=== PATIENT | female | born 1955 | race Caucasian/White ===

== ENCOUNTER 2018-08-30 08:20 | Emergency (ER) | payer BC ==
[~2018-08-30] VITALS: Ht 162.6 cm; Wt 53.1 kg
--- OUTSIDE RECORDS SUMMARY | 2018-08-30 08:24 | XMS REPORT ---
Author Author [facility] Address Unknown Phone Unavailable Care Team Providers Care Sustainability Manager Name Role Phone Unavailable Unavailable Payers Payer Name Policy Type Policy Number Effective Date Expiration Date Problems This patient has no known problems. Allergies, Adverse Reactions, Alerts This patient has no known allergies or adverse reactions. Medications This patient has no known medications.
--- OUTSIDE RECORDS SUMMARY | 2018-08-30 08:24 | XMS REPORT | CCD ---
Author Author Auto Generated Organization [facility] Address Unknown Phone Unavailable Care Team Providers Care Warehouse Stocker Name Role Phone Niels Guallpa RP Allergies, Adverse Reactions, Alerts Substance Reaction Status NKDA Active NKFA Active Problem List Condition Effective Dates Status Complex endometrial hyperplasia Active PMB - Postmenopausal bleeding 12/02/2011 Active JENNA - Total abdominal hysterectomy 02/22/2012 Active Medications Medication Instructions Start Date End Date Status lidocaine 1% MPF 0.5 mL, Route: INTRADERM, Drug 02/22/2012 02/22/2012 Completed Form: INJ, ONCALL, Start date: 02/22/12 7:00:00, Duration: 1 doses or times, Stop date: 03/24/12 0:00:00 Lactated Ringers 1,000 mL, Rate: 25 ml/hr, Infuse 02/22/2012 02/22/2012 Discontinued Injection IV 1,000 over: 40 hr, Route: IV, Dosing mL Weight 53.182 kg, Total Volume: 1,000, Start date: 02/22/12 6:46:00, Duration: 30 day, Stop date: 03/23/12 6:45:00 fluticasone 50 mcg 50 microgram, 1 ea, INHALATION, 02/15/2012 Ordered inhalation powder BID, 180 ea, Substitution Allowed, Soft Stop, PWDR Milk of Magnesia 30 mL, Route: PO, Drug Form: SUSP, 02/22/2012 02/24/2012 Discontinued Daily, PRN Indigestion, Start date: 02/22/12 12:57:00, Duration: 30 day, Stop date: 03/23/12 12:56:00 Ambien 5 mg, 1 tab, Route: PO, Drug form: 02/22/2012 02/24/2012 Discontinued TAB, Bedtime, PRN Sleep, Start date: 02/22/12 12:57:00, Duration: 30 day, Stop date: 03/23/12 12:56:00 Tylenol 650 mg, 2 tab, Route: PO, Drug 02/22/2012 02/24/2012 Discontinued form: TAB, Q3H, PRN Temperature >101.0, Start date: 02/22/12 12:56:00, Duration: 30 day, Stop date: 03/23/12 12:55:00 Zofran 4 mg, 2 mL, Route: IVP, Drug form: 02/22/2012 02/24/2012 Discontinued INJ, Q8H, PRN Nausea, Start date: 02/22/12 12:56:00, Duration: 30 day, Stop date: 03/23/12 12:55:00 dexamethasone 4 mg, 1 mL, Route: IVP, Drug form: 02/22/2012 02/22/2012 Discontinued INJ, ONCE, PRN Nausea & Vomiting, Start date: 02/22/12 7:19:00 ondansetron 4 mg, 2 mL, Route: IVP, Drug form: 02/22/2012 02/22/2012 Discontinued INJ, ONCE, PRN Nausea & Vomiting, Start date: 02/22/12 7:19:00 hydromorphone 0.5 mg, 0.25 mL, Route: IVP, Drug 02/22/2012 02/22/2012 Discontinued form: INJ, Q5Min, PRN Pain, Start date: 02/22/12 7:19:00, Duration: 5 doses or times, Stop date: Limited # of times, pain score 4-10 ketorolac 30 mg, 1 mL, Route: IVP, Drug form: 02/22/2012 02/22/2012 Discontinued INJ, ONCE, PRN Breakthrough Pain, Start date: 02/22/12 7:19:00, Duration: 1 doses or times, Stop date: Limited # of times enalapril 0.625 mg, 0.5 mL, Route: IVP, Drug 02/22/2012 02/22/2012 Discontinued form: INJ, Q5Min, PRN Elevated BP, Start date: 02/22/12 7:19:00, Duration: 4 doses or times, Stop date: Limited # of times naloxone 0.04 mg, 0.1 mL, Route: IVP, Drug 02/22/2012 02/22/2012 Discontinued form: INJ, Q2MIN, PRN Narcotic Reversal, Start date: 02/22/12 7:19:00, Duration: 8 doses or times, Stop date: Limited # of times morphine Sulfate 2 mg, 1 mL, Route: IVP, Drug form: 02/22/2012 02/22/2012 Discontinued INJ, Q5Min, PRN Pain, Start date: 02/22/12 7:19:00, Duration: 8 doses or times, Stop date: Limited # of times, pain score 4-10 flumazenil 0.2 mg, 2 mL, Route: IVP, Drug 02/22/2012 02/22/2012 Discontinued form: INJ, PRN, PRN Benzodiazepine Reversal, Initial dose, Start date: 02/22/12 7:19:00, Duration: 30 day, Stop date: 03/23/12 7:18:00 Lactated Ringers 1,000 mL, Rate: 50 ml/hr, Infuse 02/22/2012 02/22/2012 Discontinued Injection IV 1,000 over: 20 hr, Route: IV, Dosing mL Weight 53.182 kg, Total Volume: 1,000, Start date: 02/22/12 7:19:00, Duration: 30 day, Stop date: 03/23/12 7:18:00 acetaminophen-hydroc 2 tab, Route: PO, Drug Form: TAB, 02/22/2012 02/24/2012 Discontinued odone 325 mg-5 mg Q3H, PRN Pain, Start date: 02/22/12 oral tablet 12:56:00, Duration: 30 day, Stop date: 03/23/12 12:55:00 acetaminophen-hydroc 1 tab, Route: PO, Drug Form: TAB, 02/22/2012 02/24/2012 Discontinued odone 325 mg-5 mg Q3H, PRN Pain, Start date: 02/22/12 oral tablet 12:56:00, Duration: 30 day, Stop date: 03/23/12 12:55:00 Vicodin 5/500 oral 1 tab, PO, Q6H, PRN, 30 tab, for 02/24/2012 Ordered tablet pain, Substitution Allowed, Soft Stop, TAB D5LR 1,000 mL 1,000 mL, Rate: 125 ml/hr, Infuse 02/22/2012 02/24/2012 Discontinued over: 8 hr, Route: IV, Dosing Weight 53.182 kg, Total Volume: 1,000, Start date: 02/22/12 10:47:00, Duration: 30 day, Stop date: 03/23/12 10:46:00 Dulcolax Laxative 10 mg, 1 supp, Route: CO, Drug 02/22/2012 02/24/2012 Discontinued form: SUPP, Daily, PRN Constipation, Start date: 02/22/12 12:57:00, Duration: 30 day, Stop date: 03/23/12 12:56:00 Mylicon 160 mg, 2 tab, Route: CHEW, Drug 02/22/2012 02/24/2012 Discontinued form: CHEWTAB, Q8H, PRN Gas, Start date: 02/22/12 12:57:00, Duration: 30 day, Stop date: 03/23/12 12:56:00 morphine 1 mg/ml DIRECTOR OF ACCOUNTING 30 mg, 30 mL, Route: IV, DIRECTOR OF ACCOUNTING Dose: 02/22/2012 02/24/2012 Discontinued (30 mg/30 mL) INJ 1 mg, DIRECTOR OF ACCOUNTING Lockout: 10 minutes, Syringe 30 mg Continuous Basal Rate: 1 mg, 4 Hour Limit (In MG): 30, Drug Form: INJ, Continuous, Start date: 02/22/12 10:30:00, Duration: 30 day, Stop date: 03/23/12 10:29:00 cefazolin + Sodium 1 gm, Route: IVPB, ONCE, Start 02/22/2012 02/22/2012 Completed Chloride 0.9% IV 100 date: 02/22/12 6:46:00, Stop date: mL 02/22/12 6:46:00 Vital Signs Most recent to oldest [Reference Range]: 1 2 3 Height 163.83 cm (02/15/2012 13:46:00) Temperature Oral [96.4-99.1 DegF] 98.5 DegF (02/24/2012 08:00:00) 98.3 DegF (02/24/2012 04:41:00) 98.6 DegF (02/23/2012 23:24:00) Systolic Blood Pressure [90-140 mmHg] 128 mmHg (02/24/2012 08:00:00) 115 mmHg (02/24/2012 04:41:00) 111 mmHg (02/23/2012 23:24:00) Diastolic Blood Pressure [60-90 mmHg] 68 mmHg (02/24/2012 08:00:00) 69 mmHg (02/24/2012 04:41:00) 62 mmHg (02/23/2012 23:24:00) Respiratory Rate [14-20 BRMIN] 16 BRMIN (02/24/2012 08:00:00) 18 BRMIN (02/24/2012 04:41:00) 18 BRMIN (02/23/2012 23:24:00) Peripheral Pulse Rate [60-100 bpm] 70 bpm (02/24/2012 08:00:00) 82 bpm (02/24/2012 04:41:00) 63 bpm (02/23/2012 23:24:00) Weight 53.182 kg (02/15/2012 13:46:00) Results URINALYSIS Most recent to oldest [Reference Range]: 1 2 UA Turbidity [Clear] Clear (02/15/2012 14:20:00) UA Color [Yellow] Colorless *NA* (02/15/2012 14:20:00) UA pH [5.0-8.0] 5.0 (02/15/2012 14:20:00) UA Spec Grav [<=1.030] 1.004 (02/15/2012 14:20:00) UA Glucose [Negative mg/dL] Negative mg/dL *NA* (02/15/2012 14:20:00) UA Blood [Negative] Negative (02/15/2012 14:20:00) UA Ketones [Negative mg/dL] Negative mg/dL *NA* (02/15/2012 14:20:00) UA Protein [Negative mg/dL] Negative mg/dL (02/15/2012 14:20:00) UA Urobilinogen [0.1-1.0 mg/dL] <=1.0 mg/dL *NA* (02/15/2012 14:20:00) UA Bili [Negative] Negative *NA* (02/15/2012 14:20:00) UA Leuk Est [Negative] Trace *ABN* (02/15/2012 14:20:00) UA Nitrite [Negative] Negative (02/15/2012 14:20:00) UA WBC [0-5 /HPF] <1 /HPF (02/15/2012 14:20:00) UA Bacteria [None Seen /HPF] Occasional /HPF *NA* (02/15/2012 14:20:00) UA Sq Epi [Few /LPF] Many /LPF *ABN* (02/15/2012 14:20:00) Micro? Performed *NA* (02/15/2012 14:20:00) BLOOD BANK RESULTS Most recent to oldest [Reference Range]: 1 2 ABO/Rh O POS *Unknown* (02/15/2012:25:00) Antibody Scrn Negative (02/15/2012 14:25:00) CHEMISTRY Most recent to oldest [Reference Range]: 1 2 Sodium Lvl [135-145 mEq/L] 140 mEq/L (02/15/2012:25:00) Potassium Lvl [3.5-5.1 mEq/L] 3.5 mEq/L (02/15/2012:25:00) Chloride Lvl [95-109 mEq/L] 101 mEq/L (02/15/2012 14:25:00) CO2 [24-32 mEq/L] 27 mEq/L (02/15/2012 14:25:00) AGAP [10.0-20.0 mEq/L] 15.5 mEq/L (02/15/2012 14:25:00) Creatinine Lvl [0.5-1.4 mg/dL] 0.9 mg/dL (02/15/2012:25:00) BUN [7-22 mg/dL] 20 mg/dL (02/15/2012 14:25:00) B/C Ratio [6-25] 22 (02/15/2012 14:25:00) Glucose Lvl [70-99 mg/dL] 77 mg/dL 1 (02/15/2012 14:25:00) Total Protein [6.4-8.4 g/dL] 8.1 g/dL (02/15/2012 14:25:00) Albumin Lvl [3.5-5.0 g/dL] 4.4 g/dL (02/15/2012 14:25:00) Globulin [2.0-4.0 g/dL] 3.7 g/dL (02/15/2012 14:25:00) A/G Ratio [0.7-1.6] 1.2 (02/15/2012 14:25:00) Calcium Lvl [8.5-10.5 mg/dL] 9.3 mg/dL (02/15/2012 14:25:00) ALT [0-65 U/L] 21 U/L (02/15/2012 14:25:00) AST [0-37 U/L] 55 U/L *HI* (02/15/2012 14:25:00) Alk Phos [39-136 U/L] 47 U/L (02/15/2012 14:25:00) Bili Total [0.2-1.3 mg/dL] 0.7 mg/dL (02/15/2012 14:25:00) U Preg [Negative] Negative 2 (02/22/2012 14:39:00) 1Interpretive Data: Adult reference range values reflect the clinical guidelines of the [place] [employer]. 2Result Comment: PERFORMED BY [facility] Most recent to oldest [Reference Range]: 1 2 Hgb [12.0-16.0 g/dL] 12.0 g/dL (02/23/2012 07:43:00) 13.9 g/dL (02/15/2012 14:25:00) Hct [36.0-48.0 %] 36.7 % (02/23/2012 07:43:00) 42.5 % (02/15/2012 14:25:00) PT [12.0-14.7 seconds] 12.9 seconds (02/15/2012 14:25:00) INR [0.85-1.17] 0.95 3 (02/15/2012 14:25:00) PTT [22.9-35.8 seconds] 27.7 seconds 4 (02/15/2012 14:25:00) 3Interpretive Data: RECOMMENDED RANGES FOR PROTIME INR: 2.0-3.0 for most medical and surgical thromboembolic states. 2.5-3.5 for artificial heart valves and recurrent embolism. INR SHOULD BE USED ONLY FOR PATIENTS ON STABLE ANTICOAGULANT THERAPY. 4Interpretive Data: Heparin Therapeutic Range: 57 - 92 Seconds IMMUNOLOGY Most recent to oldest [Reference Range]: 1 2 RPR [Non Reactive] Non Reactive (02/15/2012 14:25:00) HIV 1/2 Ab [Negative] Negative *NA* (02/15/2012 14:25:00)
--- OUTSIDE RECORDS SUMMARY | 2018-08-30 08:24 | XMS REPORT | Continuity of Care Document ---
Author Author [facility] Interface Address Unknown Phone Unavailable Problems Problem Status Onset Date Classification Date Reported Comments Source Z01.810 Active 01/27/2017 [facility] JENNA - Total abdominal hysterectomy Active 02/22/2012 Problem 02/26/2012 [facility] JENNA - Total abdominal hysterectomy Active 02/22/2012 Problem 01/30/2017 [facility] ENDOMETRIAL HYPERPLASIA Active 01/03/2012 [facility] PMB - Postmenopausal bleeding Active 12/02/2011 Problem 02/26/2012 [facility] PMB - Postmenopausal bleeding Active 12/02/2011 Problem 01/30/2017 [facility] POST MENOPAUSAL BLEEDING Active 11/18/2011 [facility] Complex endometrial hyperplasia Active Problem 02/26/2012 [facility] endometrial hyperplasia Active Problem 01/30/2017 [facility] ADMINISTRTVE ENCOUNT NOS Active [facility] Medications Medication Details Route Status Patient Instructions Ordering Provider Order Date Source Vicodin 5/500 oral tablet 1 tab, PO, Q6H, PRN, 30 tab, for pain, Substitution Allowed, Soft Stop, TAB PO Active Saloni 02/24/2012 [facility] Milk of Magnesia 30 mL, Route: PO, Drug Form: SUSP, Daily, PRN Indigestion, Start date: 02/22/12 12:57:00, Duration: 30 day, Stop date: 03/23/12 12:56:00 PO No Longer Active [facility]oni 02/22/2012 [facility] Ambien 5 mg, 1 tab, Route: PO, Drug form: TAB, Bedtime, PRN Sleep, Start date: 02/22/12 12:57:00, Duration: 30 day, Stop date: 03/23/12 12:56:00 PO No Longer Active [facility] 02/22/2012 [facility] Dulcolax Laxative 10 mg, 1 supp, Route: WA, Drug form: SUPP, Daily, PRN Constipation, Start date: 02/22/12 12:57:00, Duration: 30 day, Stop date: 03/23/12 12:56:00 WA No Longer Active [facility] 02/22/2012 [facility] Mylicon 160 mg, 2 tab, Route: CHEW, Drug form: CHEWTAB, Q8H, PRN Gas, Start date: 02/22/12 12:57:00, Duration: 30 day, Stop date: 03/23/12 12:56:00 CHEW No Longer Active [facility] 02/22/2012 [facility] Tylenol 650 mg, 2 tab, Route: PO, Drug form: TAB, Q3H, PRN Temperature >101.0, Start date: 02/22/12 12:56:00, Duration: 30 day, Stop date: 03/23/12 12:55:00 PO No Longer Active [facility] 02/22/2012 [facility] Zofran 4 mg, 2 mL, Route: IVP, Drug form: INJ, Q8H, PRN Nausea, Start date: 02/22/12 12:56:00, Duration: 30 day, Stop date: 03/23/12 12:55:00 IVP No Longer Active [facility] 02/22/2012 [facility] acetaminophen-hydrocodone 325 mg-5 mg oral tablet 2 tab, Route: PO, Drug Form: TAB, Q3H, PRN Pain, Start date: 02/22/12 12:56:00, Duration: 30 day, Stop date: 03/23/12 12:55:00 PO No Longer Active [facility] 02/22/2012 [facility] D5LR 1,000 mL 1,000 mL, Rate: 125 ml/hr, Infuse over: 8 hr, Route: IV, Dosing Weight 53.182 kg, Total Volume: 1,000, Start date: 02/22/12 10:47:00, Duration: 30 day, Stop date: 03/23/12 10:46:00 IV No Longer Active [facility] 02/22/2012 [facility] morphine 1 mg/ml FAMILY NURSE (30 mg/30 mL) INJ Syringe 30 mg 30 mg, 30 mL, Route: IV, FAMILY NURSE Dose: 1 mg, FAMILY NURSE Lockout: 10 minutes, Continuous Basal Rate: 1 mg, 4 Hour Limit (In MG): 30, Drug Form: INJ, Continuous, Start date: 02/22/12 10:30:00, Duration: 30 day, Stop date: 03/23/12 10:29:00 IV No Longer Active [facility] 02/22/2012 [facility] dexamethasone 4 mg, 1 mL, Route: IVP, Drug form: INJ, ONCE, PRN Nausea & Vomiting, Start date: 02/22/12 7:19:00 IVP No Longer Active [facility] 02/22/2012 [facility] ondansetron 4 mg, 2 mL, Route: IVP, Drug form: INJ, ONCE, PRN Nausea & Vomiting, Start date: 02/22/12 7:19:00 IVP No Longer Active [facility] 02/22/2012 [facility] hydromorphone 0.5 mg, 0.25 mL, Route: IVP, Drug form: INJ, Q5Min, PRN Pain, Start date: 02/22/12 7:19:00, Duration: 5 doses or times, Stop date: Limited # of times, pain score 4-10 IVP No Longer Active [facility] 02/22/2012 [facility] ketorolac 30 mg, 1 mL, Route: IVP, Drug form: INJ, ONCE, PRN Breakthrough Pain, Start date: 02/22/12 7:19:00, Duration: 1 doses or times, Stop date: Limited # of times IVP No Longer Active [facility] 02/22/2012 [facility] enalapril 0.625 mg, 0.5 mL, Route: IVP, Drug form: INJ, Q5Min, PRN Elevated BP, Start date: 02/22/12 7:19:00, Duration: 4 doses or times, Stop date: Limited # of times IVP No Longer Active [facility] 02/22/2012 [facility] naloxone 0.04 mg, 0.1 mL, Route: IVP, Drug form: INJ, Q2MIN, PRN Narcotic Reversal, Start date: 02/22/12 7:19:00, Duration: 8 doses or times, Stop date: Limited # of times IVP No Longer Active [facility] 02/22/2012 [facility] morphine Sulfate 2 mg, 1 mL, Route: IVP, Drug form: INJ, Q5Min, PRN Pain, Start date: 02/22/12 7:19:00, Duration: 8 doses or times, Stop date: Limited # of times, pain score 4-10 IVP No Longer Active [facility] 02/22/2012 [facility] flumazenil 0.2 mg, 2 mL, Route: IVP, Drug form: INJ, PRN, PRN Benzodiazepine Reversal, Initial dose, Start date: 02/22/12 7:19:00, Duration: 30 day, Stop date: 03/23/12 7:18:00 IVP No Longer Active [facility] 02/22/2012 [facility] Lactated Ringers Injection IV 1,000 mL 1,000 mL, Rate: 50 ml/hr, Infuse over: 20 hr, Route: IV, Dosing Weight 53.182 kg, Total Volume: 1,000, Start date: 02/22/12 7:19:00, Duration: 30 day, Stop date: 03/23/12 7:18:00 IV No Longer Active [facility] 02/22/2012 [facility] lidocaine 1% MPF 0.5 mL, Route: INTRADERM, Drug Form: INJ, ONCALL, Start date: 02/22/12 7:00:00, Duration: 1 doses or times, Stop date: 03/24/12 0:00:00 INTRADERM No Longer Active [facility] 02/22/2012 [facility] Lactated Ringers Injection IV 1,000 mL 1,000 mL, Rate: 25 ml/hr, Infuse over: 40 hr, Route: IV, Dosing Weight 53.182 kg, Total Volume: 1,000, Start date: 02/22/12 6:46:00, Duration: 30 day, Stop date: 03/23/12 6:45:00 IV No Longer Active [facility] 02/22/2012 [facility] cefazolin + Sodium Chloride 0.9% IV 100 mL 1 gm, Route: IVPB, ONCE, Start date: 02/22/12 6:46:00, Stop date: 02/22/12 6:46:00 IVPB No Longer Active [facility] 02/22/2012 [facility] fluticasone 50 mcg inhalation powder 50 microgram, 1 ea, INHALATION, BID, 180 ea, Substitution Allowed, Soft Stop, PWDR INHALATION Active 02/15/2012 [facility] Vicodin 5/500 oral tablet 1 tab, PO, Q6H, 30 tab, Substitution Allowed, Maintenance PO Active [facility] 12/02/2011 [facility] flumazenil 0.2 mg, 2 mL, Route: IVP, Drug form: INJ, PRN, PRN Benzodiazepine Reversal, Initial dose, Start date: 12/02/11 8:50:00, Duration: 30 day, Stop date: 01/01/12 8:49:00 IVP No Longer Active [facility] 12/02/2011 [facility] meperidine 12.5 mg, 0.25 mL, Route: IVP, Drug form: INJ, Q30Min, PRN Other -See Comment, For shivering, Start date: 12/02/11 8:50:00, Duration: 2 doses or times, Stop date: Limited # of times IVP No Longer Active [facility] 12/02/2011 [facility] morphine Sulfate 2 mg, 1 mL, Route: IVP, Drug form: INJ, Q5Min, PRN Pain Score 4-6, Start date: 12/02/11 8:50:00, Duration: 8 doses or times, Stop date: Limited # of times IVP No Longer Active [facility] 12/02/2011 [facility] naloxone 0.04 mg, 0.1 mL, Route: IVP, Drug form: INJ, Q2MIN, PRN Narcotic Reversal, Start date: 12/02/11 8:50:00, Duration: 8 doses or times, Stop date: Limited # of times IVP No Longer Active [facility] 12/02/2011 [facility] promethazine 6.25 mg, 0.25 mL, Route: IVPB, ONCE, PRN Nausea & Vomiting, Start date: 12/02/11 8:50:00 IVPB No Longer Active [facility] 12/02/2011 [facility] ondansetron 4 mg, 2 mL, Route: IVP, Drug form: INJ, ONCE, PRN Nausea & Vomiting, Start date: 12/02/11 8:50:00 IVP No Longer Active [facility] 12/02/2011 [facility] lidocaine 1% 0.5 mL, Route: INTRADERM, Drug Form: INJ, ONCALL, Start date: 12/02/11 8:00:00, Duration: 1 doses or times INTRADERM No Longer Active [facility] 12/02/2011 [facility] cefazolin 1 gm, Route: IVPB, ONCE, Start date: 12/02/11 7:54:00, Duration: 1 doses or times, Stop date: 12/02/11 7:54:00 IVPB No Longer Active [facility] 12/02/2011 [facility] naloxone 0.04 mg, 0.1 mL, Route: IVP, Drug form: INJ, Q2MIN, PRN Narcotic Reversal, Start date: 12/02/11 7:29:00, Duration: 8 doses or times, Stop date: Limited # of times IVP No Longer Active [facility] 12/02/2011 [facility] flumazenil 0.2 mg, 2 mL, Route: IVP, Drug form: INJ, PRN, PRN Benzodiazepine Reversal, Initial dose, Start date: 12/02/11 7:29:00, Duration: 30 day, Stop date: 01/01/12 7:28:00 IVP No Longer Active [facility] 12/02/2011 [facility] meperidine 12.5 mg, 0.25 mL, Route: IVP, Drug form: INJ, Q30Min, PRN Other -See Comment, For shivering, Start date: 12/02/11 7:29:00, Duration: 2 doses or times, Stop date: Limited # of times IVP No Longer Active [facility] 12/02/2011 [facility] morphine Sulfate 2 mg, 0.2 mL, Route: IVP, Drug form: INJ, Q5Min, PRN Pain Score 4-6, Start date: 12/02/11 7:29:00, Duration: 8 doses or times, Stop date: Limited # of times IVP No Longer Active [facility] 12/02/2011 [facility] ketorolac 30 mg, 1 mL, Route: IVP, Drug form: INJ, ONCE, PRN Breakthrough Pain, Start date: 12/02/11 7:29:00, Duration: 1 doses or times, Stop date: Limited # of times IVP No Longer Active [facility] 12/02/2011 [facility] ondansetron 4 mg, 2 mL, Route: IVP, Drug form: INJ, ONCE, PRN Nausea & Vomiting, Start date: 12/02/11 7:29:00 IVP No Longer Active [facility] 12/02/2011 [facility] hydromorphone 0.5 mg, 0.25 mL, Route: IVP, Drug form: INJ, Q5Min, PRN Pain Score 4-6, Start date: 12/02/11 7:29:00, Duration: 5 doses or times, Stop date: Limited # of times IVP No Longer Active [facility] 12/02/2011 [facility] naloxone 0.04 mg, 0.1 mL, Route: IVP, Drug form: INJ, Q2MIN, PRN Narcotic Reversal, Start date: 12/02/11 7:23:00, Duration: 8 doses or times, Stop date: Limited # of times IVP No Longer Active [facility] 12/02/2011 [facility] flumazenil 0.2 mg, 2 mL, Route: IVP, Drug form: INJ, PRN, PRN Benzodiazepine Reversal, Initial dose, Start date: 12/02/11 7:23:00, Duration: 30 day, Stop date: 01/01/12 7:22:00 IVP No Longer Active [facility] 12/02/2011 [facility] ondansetron 4 mg, 2 mL, Route: IVP, Drug form: INJ, ONCE, PRN Nausea & Vomiting, Start date: 12/02/11 7:23:00 IVP No Longer Active [facility] 12/02/2011 [facility] Lactated Ringers Injection IV 1,000 mL 1,000 mL, Rate: 25 ml/hr, Infuse over: 40 hr, Route: IV, Dosing Weight 52.926 kg, Total Volume: 1,000, Start date: 12/02/11 7:22:00, Duration: 30 day, Stop date: 01/01/12 7:21:00 IV No Longer Active [facility] 12/02/2011 [facility] Lactated Ringers IV 1,000 mL 1,000 mL, Rate: 40 ml/hr, Infuse over: 25 hr, Route: IV, Dosing Weight 52.926 kg, Total Volume: 1,000, Start date: 12/02/11 6:25:00, Duration: 30 day, Stop date: 01/01/12 6:24:00 IV No Longer Active [facility] 12/02/2011 [facility] Vitamin D3 50,000 intl units oral capsule 50,000 IntlUnit, 1 cap, PO, Substitution Allowed, 2 times a month2 times a month PO Active 11/30/2011 [facility] Vitamin D3 50,000 intl units oral capsule 50,000 IntlUnit, 1 cap, PO, Daily, Substitution Allowed PO No Longer Active 11/30/2011 [facility] Benadryl 25 mg, PO, PRN, Substitution Allowed PO Active 11/30/2011 [facility] Fish Oil 1 tab, PO, Daily, Substitution Allowed PO Active 11/30/2011 [facility] Iron Iron, 240 mg, PO, Daily, Substitution Allowed PO Active 11/30/2011 [facility] Vitamin B6 200 mg, PO, Daily, Substitution Allowed PO Active 11/30/2011 [facility] folic acid 0.4 mg oral tablet 0.4 mg, 1 tab, PO, Daily, Substitution Allowed PO Active 11/30/2011 [facility] magnesium gluconate 200 mg, PO, Daily, Substitution Allowed PO Active 11/30/2011 [facility] elppa CoQ10 50 mg oral capsule 1 tab, PO, Daily, Substitution Allowed PO Active 11/30/2011 [facility] prasterone (dhea) 1 tab, PO, Daily, Substitution Allowed PO Active 11/30/2011 [facility] Calcium 600 +D oral tablet 1 tab, PO, Daily, Substitution Allowed, Maintenance PO Active 11/30/2011 [facility] Vitamin C 1,000 mg, PO, Daily, Substitution Allowed PO Active 11/30/2011 [facility] vitamin E 800 IntlUnit, PO, Daily, Substitution Allowed PO Active 11/30/2011 [facility] progesterone 25 mg, PO, BID, Substitution Allowed PO Active 11/30/2011 [facility] estradiol 0.05 mg/24 hours twice weekly transdermal film, extended release 1 patch, TOP, 2x/Wk, 8 patch, Substitution Allowed, Maintenance, ERFILM TOP Active 11/30/2011 [facility] Allergies, Adverse Reactions, Alerts Substance Category Reaction Severity Reaction type Status Date Reported Comments Source NKFA Assertion Food allergy Active [facility] Immunizations Immunization Date Given Site Status Last Updated Comments Source Results Order Name Results Value Reference Range Date Interpretation Comments Source HEMATOLOGY Hct 36.7 % 36.0 - 48.0 02/23/2012 Normal [facility] HEMATOLOGY Hgb 12.0 g/dL 12.0 - 16.0 02/23/2012 Normal [facility] CHEMISTRY U Preg Negative 2 (02/22/2012 14:39:00) Negative 02/22/2012 Normal 2Result Comment: PERFORMED BY ADRI [facility] BLOOD BANK RESULTS Antibody Scrn Negative (02/15/2012 14:25:00) 02/15/2012 Normal [facility] BLOOD BANK RESULTS ABO/Rh O POS 02/15/2012 Unknown [facility] CHEMISTRY Calcium Lvl 9.3 mg/dL 8.5 - 10.5 02/15/2012 Normal [facility] CHEMISTRY Total Protein 8.1 g/dL 6.4 - 8.4 02/15/2012 Normal [facility] CHEMISTRY CO2 27 meq/L 24 - 32 02/15/2012 Normal [facility] CHEMISTRY AST 55 U/L 0 - 37 02/15/2012 HI [facility] CHEMISTRY Chloride Lvl 101 meq/L 95 - 109 02/15/2012 Normal [facility] CHEMISTRY Alk Phos 47 U/L 39 - 136 02/15/2012 Normal [facility] CHEMISTRY ALT 21 U/L 0 - 65 02/15/2012 Normal [facility] CHEMISTRY Bili Total 0.7 mg/dL 0.2 - 1.3 02/15/2012 Normal [facility] CHEMISTRY Albumin Lvl 4.4 g/dL 3.5 - 5.0 02/15/2012 Normal [facility] CHEMISTRY Potassium Lvl 3.5 meq/L 3.5 - 5.1 02/15/2012 Normal [facility] CHEMISTRY Sodium Lvl 140 meq/L 135 - 145 02/15/2012 Normal [facility] CHEMISTRY BUN 20 mg/dL 7 - 22 02/15/2012 Normal [facility] CHEMISTRY Creatinine Lvl 0.9 mg/dL 0.5 - 1.4 02/15/2012 Normal [facility] CHEMISTRY Glucose Lvl 77 mg/dL 70 - 99 02/15/2012 Normal 1Interpretive Data: Adult reference range values reflect the clinical guidelines of the [place] [employer]. [facility] CHEMISTRY AGAP 15.5 meq/L 10.0 - 20.0 02/15/2012 Normal [facility] CHEMISTRY Globulin 3.7 g/dL 2.0 - 4.0 02/15/2012 Normal [facility] CHEMISTRY B/C Ratio 22 6 - 25 02/15/2012 Normal [facility] CHEMISTRY A/G Ratio 1.2 0.7 - 1.6 02/15/2012 Normal [facility] HEMATOLOGY PTT 27.7 s 22.9 - 35.8 02/15/2012 Normal 4Interpretive Data: Heparin Therapeutic Range: 57 - 92 Seconds [facility] HEMATOLOGY PT 12.9 s 12.0 - 14.7 02/15/2012 Normal [facility] HEMATOLOGY INR 0.95 0.85 - 1.17 02/15/2012 Normal 3Interpretive Data: RECOMMENDED RANGES FOR PROTIME INR: 2.0-3.0 for most medical and surgical thromboembolic states. 2.5-3.5 for artificial heart valves and recurrent embolism. INR SHOULD BE USED ONLY FOR PATIENTS ON STABLE ANTICOAGULANT THERAPY. [facility] HEMATOLOGY Hct 42.5 % 36.0 - 48.0 02/15/2012 Normal [facility] HEMATOLOGY Hgb 13.9 g/dL 12.0 - 16.0 02/15/2012 Normal [facility] IMMUNOLOGY RPR Non Reactive (02/15/2012 14:25:00) Non Reactive 02/15/2012 Normal [facility] IMMUNOLOGY HIV 1/2 Ab Negative *NA* (02/15/2012 14:25:00) Negative 02/15/2012 [facility] URINALYSIS UA Color Colorless *NA* (02/15/2012 14:20:00) Yellow 02/15/2012 NA [facility] URINALYSIS UA Turbidity Clear (02/15/2012 14:20:00) Clear 02/15/2012 Normal [facility] URINALYSIS UA Spec Grav 1.004 <=1.030 02/15/2012 Normal [facility] URINALYSIS UA Urobilinogen <=1.0 mg/dL
*NA*
(02/15/2012 14:20:00) <sup> </sup> 0.1 - 1.0 02/15/2012 [facility] URINALYSIS Micro? Performed *NA* (02/15/2012 14:20:00) 02/15/2012 NA [facility] URINALYSIS UA pH 5.0 5.0 - 8.0 02/15/2012 Normal [facility] URINALYSIS UA Protein Negative mg/dL (02/15/2012 14:20:00) Negative 02/15/2012 Normal [facility] URINALYSIS UA Leuk Est Trace *ABN* (02/15/2012 14:20:00) Negative 02/15/2012 ABN [facility] URINALYSIS UA WBC null 0 - 5 02/15/2012 Normal [facility] URINALYSIS UA Bacteria Occasional /HPF *NA* (02/15/2012 14:20:00) None Seen 02/15/2012 [facility] URINALYSIS UA Sq Epi Many /LPF *ABN* (02/15/2012 14:20:00) Few 02/15/2012 ABN [facility] URINALYSIS UA Glucose Negative mg/dL *NA* (02/15/2012 14:20:00) Negative 02/15/2012 NA [facility] URINALYSIS UA Ketones Negative mg/dL *NA* (02/15/2012 14:20:00) Negative 02/15/2012 NA [facility] URINALYSIS UA Bili Negative *NA* (02/15/2012 14:20:00) Negative 02/15/2012 NA [facility] URINALYSIS UA Blood Negative (02/15/2012 14:20:00) Negative 02/15/2012 Normal [facility] URINALYSIS UA Nitrite Negative (02/15/2012 14:20:00) Negative 02/15/2012 Normal [facility] HEMATOLOGY Hgb 13.7 g/dL 12.0 - 16.0 11/30/2011 Normal [facility] HEMATOLOGY Hct 39.5 % 36.0 - 48.0 11/30/2011 Normal [facility] Vital Signs Vital Sign Value Date Comments Source Diastolic (mm Hg) 68 02/24/2012 [facility] Respitory Rate 16 02/24/2012 [facility] Systolic (mm Hg) 128 02/24/2012 [facility] Heart Rate 70 02/24/2012 [facility] Temperature Oral (F) 98.5 F 02/24/2012 [facility] Heart Rate 82 02/24/2012 [facility] Respitory Rate 18 02/24/2012 [facility] Temperature Oral (F) 98.3 F 02/24/2012 [facility] Systolic (mm Hg) 115 02/24/2012 [facility] Diastolic (mm Hg) 69 02/24/2012 [facility] Temperature Oral (F) 98.6 F 02/24/2012 [facility] Heart Rate 63 02/24/2012 [facility] Diastolic (mm Hg) 62 02/24/2012 [facility] Systolic (mm Hg) 111 02/24/2012 [facility] Respitory Rate 18 02/24/2012 [facility] Weight 53.182 02/15/2012 [facility] Height 163.83 cm 02/15/2012 [facility] Diastolic (mm Hg) 55 12/02/2011 [facility] Systolic (mm Hg) 99 12/02/2011 [facility] Heart Rate 65 12/02/2011 [facility] Respitory Rate 16 12/02/2011 [facility] Respitory Rate 15 12/02/2011 [facility] Systolic (mm Hg) 109 12/02/2011 [facility] Diastolic (mm Hg) 54 12/02/2011 [facility] Diastolic (mm Hg) 63 12/02/2011 [facility] Systolic (mm Hg) 112 12/02/2011 [facility] Respitory Rate 10 12/02/2011 [facility] Heart Rate 67 12/02/2011 [facility] Temperature Oral (F) 97.7 F 12/02/2011 [facility] Heart Rate 60 11/30/2011 [facility] Weight 52.926 11/30/2011 [facility] Height 163.83 cm 11/30/2011 [facility] Encounters Location Location Details Encounter Type Encounter Number Reason For Visit Attending Provider ADM Date DC Date Status Source [facility] DS [id number] DUARTE YEH 12/02/2011 12/02/2011 Active [facility] Inpatient [id number] DUARTE YEH 02/22/2012 02/24/2012 Active [facility] Outpatient [id number] Mariam Lozano 05/23/2014 05/24/2014 [facility] Outpatient [id number] Jamarcus Macdonald 01/27/2017 01/28/2017 [facility] Procedures Procedure Code Date Perfomer Comments Source
--- OUTSIDE RECORDS SUMMARY | 2018-08-30 08:24 | XMS REPORT | Summary of Care ---
Author Organization Unknown Address Unknown Phone Unavailable Encounter HQ Rick_adrian(KYLAH) [id number] Date(s): 05/23/14 - 05/23/14 [facility] Outpatient Imaging [address] [address]- A Discharge Disposition: Home Physician Attending: Mariam Lozano MD Reason for Visit V76.12 - SCREEN MAMMOGRA Problem List Condition Effective Dates Status Health Status Informant Complex endometrial Active hyperplasia(Confirme d) PMB - Postmenopausal 12/02/11 Active bleeding(Confirmed) JENNA - Total 02/22/12 Active abdominal hysterectomy(Confirm ed) Allergies, Adverse Reactions, Alerts Substance Reaction Severity Status NKDA Active NKFA Active Medications No data available for this section Medications Administered During Your Visit No data available for this section Immunizations No data available for this section Social History Social History Type Response
--- OUTSIDE RECORDS SUMMARY | 2018-08-30 08:24 | XMS REPORT | Summary of Care ---
Author Author RENEE Simon, REUBEN Organization Unknown Address [address], [address] [place] [address] Phone Unavailable Care Team Providers Care Systems Technician Name Role Phone REUBEN DURAN MD Unavailable Unavailable REUBEN DURAN M.D. Unavailable Unavailable Unavailable Unavailable Functional Status Name Dates Details Functional status health issues are not documented Status: Name Dates Details Cognitive status health issues are not documented Status: Problems Name Dates Details Cystic acne (706.1, L70.0) Status: Active Encounter for preventive health examination (V70.0, Z00.00) Status: Active Medications Name Dates Details Spironolactone 100 MG Oral Tablet TAKE 1 TABLET DAILY. R.N. Active Estradiol 0.05 MG/24HR Transdermal Patch Twice Weekly * Refills: 0 R.N. Active Cetirizine HCl - 10 MG Oral Tablet * Refills: 0 R.N. Active Allergies and Adverse Reactions Name Dates Details No Known Drug Allergies (Allergy) Status: Active Past Medical History Name Dates Details No pertinent past medical history Status: Resolved Procedures Procedure Dates Details History of Hysterectomy Completed History of Tonsillectomy Completed History of Repair Of Retinal Detachment Completed History of Abdominoplasty Completed History of Complete Colonoscopy Completed History of Cholecystectomy Completed Immunization Name Dates Details Immunizations not documented Family History Name Dates Details Family history of essential hypertension (V17.49, Z82.49) Status: Active Social History Name Dates Details Unknown if ever smoked Vital Signs Date Test Result Details 25-May-20189:58 BP Systolic 109 mm[Hg] Status: Comments: Location: RUE; Position: Sitting BP Diastolic 73 mm[Hg] Status: Comments: Location: E; Position: Sitting Height 64 in Status: Weight 117 lb Status: Body Mass Index Calculated 20.08 kg/m2 Status: Body Surface Area Calculated 1.56 m2 Status: Temperature 97.4 f Status: Comments: Method: Oral Heart Rate 57 /min Status: Results Date Description Value Details [id number] [QLH] CBC (INCLUDES DIFF/PLT) WBC 5.4 {K/CMM} Range: 3.7-10.4 RBC 4.77 {M/CMM} Range: 4.20-5.40 Hgb 15.0 g/dl Range: 12.0-16.0 Hct 44.5 % Range: 36.0-48.0 MCV 93.3 fL Range: 80.0-98.0 MCH 31.4 pg (Above high threshold) Range: 27.0-31.0 MCHC 33.7 g/dl Range: 32.0-36.0 RDW 13.9 % Range: 11.5-14.5 Platelet 281 {K/CMM} Range: 133-450 Mean Platelet Volume 8.0 fL Range: 7.4-10.4 :39 [QL] Differential Segmented Neutrophils 76.3 % (Above high threshold) Range: 45.0-75.0 Monocytes 5.4 % Range: 2.0-12.0 Lymphocytes 17.3 % (Below low threshold) Range: 20.0-40.0 Eosinophils 0.4 % Range: 0.0-4.0 Basophils 0.6 % Range: 0.0-1.0 Segs-Bands # 4.1 {K/CMM} Range: 1.5-8.1 Lymphocytes # 0.9 {K/CMM} (Below low threshold) Range: 1.0-5.5 Monocytes # 0.3 {K/CMM} Range: 0.0-0.8 :39 [QL] CMP W/EGFR Sodium Level 140 {mEq/l} Range: 135-145 Potassium Level 4.2 {mEq/l} Range: 3.5-5.1 Chloride Level 103 {mEq/l} Range: 95-109 Carbon Dioxide 32 {mEq/l} Range: 24-32 AGAP 9.2 {mEq/l} (Below low threshold) Range: 10.0-20.0 Glucose Lvl 94 mg/dl Range: 70-99 Comments: Adult reference range values reflect the clinical guidelinesof the [place] [employer]. Creatinine Lvl 0.70 mg/dl Range: 0.50-1.40 Blood Urea Nitrogen 18 mg/dl Range: 7-22 BUN/Creatinine Ratio 26 (Above high threshold) Range: 6-25 Total Protein 7.7 g/dl Range: 6.4-8.4 Albumin Lvl 4.5 g/dl Range: 3.5-5.0 Globulin 3.2 g/dl Range: 2.7-4.2 A/G Ratio 1.4 Range: 0.7-1.6 Calcium Level Total 9.4 mg/dl Range: 8.5-10.5 ALT 27 u/l Range: 0-65 AST 56 u/l (Above high threshold) Range: 0-37 Alk Phos 49 u/l Range: 39-136 Bili Total 0.6 mg/dl Range: 0.2-1.3 eGFR 94 {ML/MIN/1.7} Comments: The eGFR is calculated using the CKD-EPI formula. In most young, healthyindividuals the eGFR will be >90 mL/min/1.73m2. The eGFR declines with age. AneGFR of 60-89 may be normal in some populations, particularly the elderly, forwhom the CKD-EPI formula has not been extensively validated. Use of the eGFR isnot recommended in the following populations:Individuals with unstable creatinine concentrations, including patients and those with serious co-morbid conditions.Patients with extremes in muscle mass or diet.The data above are obtained from the National Kidney Disease Education Program(NKDEP) which additionally recommends that when the eGFR is used in patientswith extremes of body mass index for purposes of drug dosing, the eGFR shouldbe multiplied by the estimated BMI. :39 [QL] LIPID PANEL Chol 187 mg/dl Range: <=199 Trig 39 mg/dl Range: <=149 HDL Cholesterol 79 mg/dl Range: >=61 CHD Risk 2.37 (Below low threshold) Range: 3.90-5.80 LDL 100 mg/dl (Above high threshold) Range: <=99 VLDL 8 [id number] [QLH] TSH, 3RD GENERATION W/REFLEX TO FT4 TSH 1.360 {uIU/ml} Range: 0.360-3.740 :39 [] HIV AB, HIV 1/2, EIA, WITH REFLEXES HIV Ag/Ab 4th Gen Negative Range: Negative Comments: HIV test results should be considered positive only when both the screening andthe confirmatory tests are positive. A negative confirmatory test in patientswith a positive screening test does not exclude HIV infection. If clincallywarranted, an HIV RNA quantitative test should be ordered. [id number] [[facility]] HEMOGLOBIN A1c Hemoglobin A1c 4.9 % Range: <=5.6 25-May-20189:40 Tobacco Use Screening Completed DONE Plan of Care Name Dates Details Planned Observations Planned Goals not documented Interventions Provided Discussion/Summary* Labs looked OK! AST liver enzyme slightly elevated at 56 (other liver enzymes within normal range), will need to re-check in 3 months. Continue to follow a low fat diet and continue moderate exercise. Instructions Name Dates Details Instructions not documented Encounters Appointment; REUBEN DURAN M.D. Encounter Diagnosis: Problem not documented On: 25-May-2018 9:40
--- OUTSIDE RECORDS SUMMARY | 2018-08-30 08:24 | XMS REPORT | Summary of Care ---
Author Author [facility] Organization [facility] Address Unknown Phone Unavailable Encounter HQ Rick_adrian(KYLAH) [id number] Date(s): 01/27/17 - 01/27/17 [facility] [address] [place] [address]- Discharge Disposition: Home or Self Care Attending Physician: Jamarcus Macdonald MD Vital Signs No data available for this section Problem List Condition Effective Dates Status Health Status Informant Complex endometrial Active hyperplasia(Confirme d) PMB - Postmenopausal 12/02/11 Active bleeding(Confirmed) JENNA - Total 02/22/12 Active abdominal hysterectomy(Confirm ed) Allergies, Adverse Reactions, Alerts Substance Reaction Severity Status NKDA Active NKFA Active Medications No data available for this section Results No data available for this section Immunizations No data available for this section Procedures No data available for this section Social History Social History Type Response Assessment and Plan No data available for this section
--- OUTSIDE RECORDS SUMMARY | 2018-08-30 08:24 | XMS REPORT | CCD ---
Author Author Auto Generated Organization [facility] Address Unknown Phone Unavailable Care Team Providers Care Garment Patternmaker Name Role Phone Niels Guallpa RP Allergies, Adverse Reactions, Alerts Substance Reaction Status NKDA Active NKFA Active Problem List Condition Effective Dates Status PMB - Postmenopausal bleeding 12/02/2011 Active Medications Medication Instructions Start Date End Date Status estradiol 0.05 mg/24 1 patch, TOP, 2x/Wk, 8 patch, 11/30/2011 Ordered hours twice weekly Substitution Allowed, Maintenance, transdermal film, ERFILM extended release naloxone 0.04 mg, 0.1 mL, Route: IVP, Drug 12/02/2011 12/02/2011 Discontinued form: INJ, Q2MIN, PRN Narcotic Reversal, Start date: 12/02/11 7:23:00, Duration: 8 doses or times, Stop date: Limited # of times flumazenil 0.2 mg, 2 mL, Route: IVP, Drug 12/02/2011 12/02/2011 Discontinued form: INJ, PRN, PRN Benzodiazepine Reversal, Initial dose, Start date: 12/02/11 7:23:00, Duration: 30 day, Stop date: 01/01/12 7:22:00 ondansetron 4 mg, 2 mL, Route: IVP, Drug form: 12/02/2011 12/02/2011 Discontinued INJ, ONCE, PRN Nausea & Vomiting, Start date: 12/02/11 7:23:00 Lactated Ringers 1,000 mL, Rate: 25 ml/hr, Infuse 12/02/2011 12/02/2011 Discontinued Injection IV 1,000 over: 40 hr, Route: IV, Dosing mL Weight 52.926 kg, Total Volume: 1,000, Start date: 12/02/11 7:22:00, Duration: 30 day, Stop date: 01/01/12 7:21:00 lidocaine 1% 0.5 mL, Route: INTRADERM, Drug 12/02/2011 12/02/2011 Discontinued Form: INJ, ONCALL, Start date: 12/02/11 8:00:00, Duration: 1 doses or times Vitamin D3 50,000 50,000 IntlUnit, 1 cap, PO, Daily, 11/30/2011 11/30/2011 Deleted intl units oral Substitution Allowed capsule flumazenil 0.2 mg, 2 mL, Route: IVP, Drug 12/02/2011 12/02/2011 Discontinued form: INJ, PRN, PRN Benzodiazepine Reversal, Initial dose, Start date: 12/02/11 8:50:00, Duration: 30 day, Stop date: 01/01/12 8:49:00 meperidine 12.5 mg, 0.25 mL, Route: IVP, Drug 12/02/2011 12/02/2011 Discontinued form: INJ, Q30Min, PRN Other -See Comment, For shivering, Start date: 12/02/11 8:50:00, Duration: 2 doses or times, Stop date: Limited # of times morphine Sulfate 2 mg, 1 mL, Route: IVP, Drug form: 12/02/2011 12/02/2011 Discontinued INJ, Q5Min, PRN Pain Score 4-6, Start date: 12/02/11 8:50:00, Duration: 8 doses or times, Stop date: Limited # of times naloxone 0.04 mg, 0.1 mL, Route: IVP, Drug 12/02/2011 12/02/2011 Discontinued form: INJ, Q2MIN, PRN Narcotic Reversal, Start date: 12/02/11 8:50:00, Duration: 8 doses or times, Stop date: Limited # of times promethazine 6.25 mg, 0.25 mL, Route: IVPB, 12/02/2011 12/02/2011 Completed ONCE, PRN Nausea & Vomiting, Start date: 12/02/11 8:50:00 ondansetron 4 mg, 2 mL, Route: IVP, Drug form: 12/02/2011 12/02/2011 Discontinued INJ, ONCE, PRN Nausea & Vomiting, Start date: 12/02/11 8:50:00 Benadryl 25 mg, PO, PRN, Substitution 11/30/2011 Ordered Allowed Fish Oil 1 tab, PO, Daily, Substitution 11/30/2011 Ordered Allowed Lactated Ringers IV 1,000 mL, Rate: 40 ml/hr, Infuse 12/02/2011 12/02/2011 Discontinued 1,000 mL over: 25 hr, Route: IV, Dosing Weight 52.926 kg, Total Volume: 1,000, Start date: 12/02/11 6:25:00, Duration: 30 day, Stop date: 01/01/12 6:24:00 Iron Iron, 240 mg, PO, Daily, 11/30/2011 Ordered Substitution Allowed Vitamin B6 200 mg, PO, Daily, Substitution 11/30/2011 Ordered Allowed folic acid 0.4 mg 0.4 mg, 1 tab, PO, Daily, 11/30/2011 Ordered oral tablet Substitution Allowed naloxone 0.04 mg, 0.1 mL, Route: IVP, Drug 12/02/2011 12/02/2011 Discontinued form: INJ, Q2MIN, PRN Narcotic Reversal, Start date: 12/02/11 7:29:00, Duration: 8 doses or times, Stop date: Limited # of times flumazenil 0.2 mg, 2 mL, Route: IVP, Drug 12/02/2011 12/02/2011 Discontinued form: INJ, PRN, PRN Benzodiazepine Reversal, Initial dose, Start date: 12/02/11 7:29:00, Duration: 30 day, Stop date: 01/01/12 7:28:00 meperidine 12.5 mg, 0.25 mL, Route: IVP, Drug 12/02/2011 12/02/2011 Discontinued form: INJ, Q30Min, PRN Other -See Comment, For shivering, Start date: 12/02/11 7:29:00, Duration: 2 doses or times, Stop date: Limited # of times morphine Sulfate 2 mg, 0.2 mL, Route: IVP, Drug 12/02/2011 12/02/2011 Discontinued form: INJ, Q5Min, PRN Pain Score 4-6, Start date: 12/02/11 7:29:00, Duration: 8 doses or times, Stop date: Limited # of times ketorolac 30 mg, 1 mL, Route: IVP, Drug form: 12/02/2011 12/02/2011 Discontinued INJ, ONCE, PRN Breakthrough Pain, Start date: 12/02/11 7:29:00, Duration: 1 doses or times, Stop date: Limited # of times ondansetron 4 mg, 2 mL, Route: IVP, Drug form: 12/02/2011 12/02/2011 Discontinued INJ, ONCE, PRN Nausea & Vomiting, Start date: 12/02/11 7:29:00 hydromorphone 0.5 mg, 0.25 mL, Route: IVP, Drug 12/02/2011 12/02/2011 Discontinued form: INJ, Q5Min, PRN Pain Score 4-6, Start date: 12/02/11 7:29:00, Duration: 5 doses or times, Stop date: Limited # of times magnesium gluconate 200 mg, PO, Daily, Substitution 11/30/2011 Ordered Allowed elppa CoQ10 50 mg 1 tab, PO, Daily, Substitution 11/30/2011 Ordered oral capsule Allowed prasterone (dhea) 1 tab, PO, Daily, Substitution 11/30/2011 Ordered Allowed Vitamin D3 50,000 50,000 IntlUnit, 1 cap, PO, 11/30/2011 Ordered intl units oral Substitution Allowed, 2 times a capsule month 2 times a month Calcium 600 +D oral 1 tab, PO, Daily, Substitution 11/30/2011 Ordered tablet Allowed, Maintenance cefazolin 1 gm, Route: IVPB, ONCE, Start 12/02/2011 12/02/2011 Completed date: 12/02/11 7:54:00, Duration: 1 doses or times, Stop date: 12/02/11 7:54:00 Vitamin C 1,000 mg, PO, Daily, Substitution 11/30/2011 Ordered Allowed vitamin E 800 IntlUnit, PO, Daily, 11/30/2011 Ordered Substitution Allowed progesterone 25 mg, PO, BID, Substitution 11/30/2011 Ordered Allowed Vicodin 5/500 oral 1 tab, PO, Q6H, 30 tab, 12/02/2011 Ordered tablet Substitution Allowed, Maintenance Vital Signs Most recent to oldest [Reference Range]: 1 2 3 Height 163.83 cm (11/30/2011 16:29:00) Temperature Oral [96.4-99.1 DegF] 97.7 DegF (12/02/2011 06:23:00) Systolic Blood Pressure [90-140 mmHg] 99 mmHg (12/02/2011 10:00:00) 109 mmHg (12/02/2011 09:45:00) 112 mmHg (12/02/2011 09:30:00) Diastolic Blood Pressure [60-90 mmHg] 55 mmHg *LOW* (12/02/2011 10:00:00) 54 mmHg *LOW* (12/02/2011:45:00) 63 mmHg (12/02/2011 09:30:00) Respiratory Rate [14-20 BRMIN] 16 BRMIN (12/02/2011 10:00:00) 15 BRMIN (12/02/2011:45:00) 10 BRMIN *LOW* (12/02/2011:30:00) Peripheral Pulse Rate [60-100 bpm] 65 bpm (12/02/2011 10:00:00) 67 bpm (12/02/2011 06:23:00) 60 bpm (11/30/2011 16:29:00) Weight 52.926 kg (11/30/2011 16:29:00) Results HEMATOLOGY Most recent to oldest [Reference Range]: 1 Hgb [12.0-16.0 g/dL] 13.7 g/dL (11/30/2011 16:45:00) Hct [36.0-48.0 %] 39.5 % (11/30/2011 16:45:00)
[2018-08-30] MEDS ORDERED: PRILOSEC10 M1 PO (09:51)
--- NOTE | 2018-08-30 09:51 | Diagnostic Imaging Report ---
EXAMINATION: PA and lateral views of the chest. COMPARISON: None CLINICAL HISTORY: Upper abdominal pain DISCUSSION: Lungs are well-inflated. No focal airspace consolidation, pleural effusion, or pneumothorax. Cardiomediastinal contour and pulmonary vasculature are within normal limits. No acute osseous abnormality. No free air under the diaphragm. IMPRESSION: No acute cardiopulmonary abnormalities. Signed by: Dr. Eric Gerard M.D. on 08/30/2018 9:48 AM
[2018-08-30 09:56] VITALS: BP 104/69
== END 2018-08-30 10:00 | disposition home or self-care (01) ==
LOC: FSED 08:20
DX: R10.13 Epigastric pain (principal)
CPT/HCPCS: 71046; 80053; 80076; 81003; 82553; 84484; 85025; 93005; 99283